=== PATIENT | female | born 1965 | race Asian ===

== ENCOUNTER → 2018-09-19 | Emergency (ER) | payer OTHER ==
[~2018-09-19] MED LIST: BENICAR20 MG PO; CITALOPRAM HBR20 MG PO; METOPROLOL SUC100 MG PO
--- OUTSIDE RECORDS SUMMARY | 2018-09-19 18:46 | XMS REPORT | Summary of Care ---
Author Author [facility] Organization [facility] Address Unknown Phone Unavailable Encounter HQ Encntr_alias(FIN) [id number] Date(s): 10/30/16 - 10/30/16 [facility] [address] [place] [address]- [phone] Discharge Disposition: Home or Self Care Attending Physician: Miranda Suh MD Referring Physician: Miranda Suh MD Vital Signs No data available for this section Problem List No data available for this section Allergies, Adverse Reactions, Alerts No data available for this section Medications No data available for this section Results No data available for this section Immunizations No data available for this section Procedures No data available for this section Social History No data available for this section Assessment and Plan No data available for this section
--- OUTSIDE RECORDS SUMMARY | 2018-09-19 18:46 | XMS REPORT | Summary of Care ---
Author Author [facility] Organization [facility] Address Unknown Phone Unavailable Encounter HQ Encntr_alias(FIN) [id number] Date(s): 06/07/15 - 06/07/15 [facility] [address] [place] [address]- Discharge Disposition: Home Attending Physician: Miranda Suh MD Referring Physician: [...]
--- OUTSIDE RECORDS SUMMARY | 2018-09-19 18:46 | XMS REPORT ---
Author Author [facility] Address Unknown Phone Unavailable Care Team Providers Care Cartographic Designer Name Role Phone SHEREEN CULVER Unavailable Unavailable Problems This patient has no known problems. Allergies, Adverse Reactions, Alerts This patient has no known allergies or adverse reactions. Medications This patient has no known medications. Encounters Start Date/Time End Date/Time Encounter Type Admission Type Attending Clinicians Care Facility Care Department Encounter ID 2017-02-04 08:02:00 2017-02-04 10:02:00 Outpatient 3 SHEREEN CULVER [facility] [id number] Results Test Description Test Time Test Comments Text Results Atomic Results Result Comments PATHOLOGY REPORT 2017-02-05 12:16:00 - [facility].[address], [place] [address] aSAMIR PELLETIER M.D.JASON E. MATHERNE, M.D.JOSEPH M. WEMPE, M.D. Patient: JAKE HUI 1965 51 FRoom:Hosp#: [id number] Ordering Physician: Jose CULVER Rec.: 02/04/2017Date of Proc.: 02/04/2017Lab No.: [id number] Clinical History:- Breast mass.FINAL ANATOMIC DIAGNOSIS:A. SENTINEL LYMPH NODE, LEFT, EXCISION:- ONE LYMPH NODE; NO EVIDENCE OF METASTATIC CARCINOMA (0/1).B. LEFT BREAST MASS A, EXCISION:- BENIGN PHYLLODES TUMOR (LOW-GRADE).- SIZE: 5.5 CM.- LESS THAN FIVE MITOSIS IN TEN HIGH-POWER EARLY.- MILD STROMAL PLEOMORPHISM.- NO OTHER FEATURES OF MALIGNANCY IDENTIFIED.- REMAINING BREAST SHOWS FIBROCYSTIC CHANGES.-C. LEFT BREAST MASS B, EXCISION:- BENIGN PHYLLODES TUMOR AND HYALINIZED FIBROADENOMA (SEE COMMENT).REPORT COMMENTS:- C. Two distinct nodules are seen. One shows features of benignphyllodes tumor and other shows hyalinized fibroadenoma. Thephyllodes tumor may represent the continuation of mass A.Correlation with clinical and radiological findings recommended.FROZEN DIAGNOSIS:Intraoperative consult diagnosis (touch preparation):- Axillary left breast, sentinel lymph node: One lymph node,negative for metastatic carcinoma by touch preparations ([facility]).GROSS APPEARANCE:- A. The specimen labeled "left sentinel lymph node." Received is atan-yellow adipose tissue. A single lymph node is identified 2.2 x1.8 x 0.5 cm. Two touch preps were prepared from the lymph node.The entire specimen is submitted in three cassettes A1node, A3-sentinel fat.- B. The specimen labeled "left breast mass A." Received are twofragments of pale white tissue 5.8 x 4.2 x 2.5 cm and 4.5 x 2.7 x1.8 cm. The larger fragment is a cardona-white nodule 5.5 cm indimension. The nodule is ruptured along the upper surface. Noorientation is identified on the specimen. Sectioning through thismass reveals pale white firm cut surface. The specimen is submittedin eight cassettes: B1 through B6-mass with section from theruptured area in B5 and B6, B6glpvsvjk.- C. The specimen is labeled "left breast mass part B." Received ute cardona-yellow unoriented fragment of a tissue 2.5 x 1.5 x 0.2 cm.Sectioning reveals a white nodule, 1.2 cm. The specimen issubmitted entirely in three cassettes from C1 through C3.PATHOLOGIST: Rj Barajas Adeel Electronically Signed: 02/05/2017 EKG 2017-02-04 13:13:00 QRS Interval: 92msQT Interval: 428msQTC Interval: 424msP [place]: 31degQRS [place]: 16degT Wave [place]: 11degP-R Interval: 182msecRR Interval: 1017msecHeart Rate: 59bpmI 40 [place]: 29degT 40 [place]: 9degST [place]: 30degEKG Severity: - OTHERWISE NORMAL ECG -REPORT:Sinus bradycardia CHEST 1 VIEW PORTABLE 2017-02-04 08:51:[address] [id number] IMAGING REPORTPatient Name: STEPHANIE HUIEEDate of Service: [id number]: 51 Sex: F Order #: [id number] Room: EDOB: 1965 X-Ray Number: [id number] Record Number: [id number] Hospital Number: [id number] Physician: Belkis CULVERing Physician: Rajinder CULVER.8:39 AMHistory: Short of breath.Technique: Single AP chest projection.Findings: Single chest projection demonstrates normal heart size and clearlungs. No infiltrates or abnormalities are depicted. The osseous structuresappear intact.Impression:No acute-appearing cardiopulmonary abnormalities.Electronically Signed By: Power Kim M.D., 02/04/2017 8:49 AMLegally authenticated by ANGELIKA Sandhu 2017-02-04 08:49:39
--- OUTSIDE RECORDS SUMMARY | 2018-09-19 18:46 | XMS REPORT | Summary of Care ---
Author Author [facility] Organization [facility] Address Unknown Phone Unavailable Encounter HQ Encntr_alias(FIN) [id number] Date(s): 11/07/16 - 11/07/16 [facility] [address] [place] [address]- Discharge Disposition: Home or Self Care Attending Physician: Miranda Suh MD Admitting Physician: Miranda Suh MD Referring Physician: Miranda [...]
--- OUTSIDE RECORDS SUMMARY | 2018-09-19 18:46 | XMS REPORT | Summary of Care ---
Author Author [facility] Organization [facility] Address Unknown Phone Unavailable Encounter HQ Encntr_alias(FIN) [id number] Date(s): 06/11/15 - 06/11/15 [facility] [address] [place] [address]- Discharge Disposition: Home Attending Physician: Miranda Suh [...]
--- OUTSIDE RECORDS SUMMARY | 2018-09-19 18:46 | XMS REPORT | Continuity of Care Document ---
Author Author [facility] Interface Address Unknown Phone Unavailable Problems Problem Status Onset Date Classification Date Reported Comments Source DX: MASS Active 10/30/2016 [facility] DX: MASS Active 10/30/2016 [facility] DX: BREAST LUMP LAST MMG WITH MH Active 09/08/2016 [facility] DX: BREAST LUMP LAST MMG WITH MH Active 09/08/2016 [facility] MASS Active 06/07/2015 [facility] BREAST MASS Active 06/07/2015 [facility] BREAST LUMP RT BREAST Active 05/30/2015 [facility] Medications Medication Details Route Status Patient Instructions Ordering Provider Order Date Source Allergies, Adverse Reactions, Alerts Substance Category Reaction Severity Reaction type Status Date Reported Comments Source Immunizations Immunization Date Given Site Status Last Updated Comments Source Results Order Name Results Value Reference Range Date Interpretation Comments Source Breast BX Uni w Clip Primary Side US Breast BX Uni w Clip Primary Side US - BREAST BX UNI W CLIP PRIMARY SIDE US/L ULTRASOUND GUIDED BIOPSY LEFT BREAST WITH MARKING DEVICE INSERTED AND POST DIGITAL MAMMOGRAPHIC AND ULTRASOUND IMAGIN11/07/2016 CLINICAL: Left breast 3 o'clock mass increased in size. PATIENT CONSENT: Oral and written informed consent was obtained. Risks, benefits, and alternatives were discussed with the patient. Risks include but are not limited to pain, infection, bleeding, incomplete procedure, repeat procedure, pneumothorax, damage to surrounding tissues, and allergic reaction. The patient understands the plan and wishes to proceed. A time out was performed immediately prior to the procedure to confirm the patient's identity (name/date of ) and correct procedure site. Correlation is made to exams dated: 10/30/2016 ultrasound, 10/30/2016 mammogram, 06/11/2015 ultrasound biopsy, 06/07/2015 ultrasound, 06/07/2015 mammogram - [facility] and 07/11/2011 mammogram - [facility]. An ultrasound guided biopsy using real-time ultrasound was performed for the concerning 3.6 cm wider than tall circumscribed oval solid mass located in the left breast at 3 o'clock posterior depth 2 cm from the nipple. This was described on the previous mammography and ultrasound reports. The skin was prepped in the usual manner. 5 ccs of 1% lidocaine was administered during the procedure. A skin jacque was made in the breast. The abnormality was approached from the lateral aspect. A 14 gauge biopsy needle was placed adjacent to the abnormality through an introducer device under ultrasound guidance. Once the needle was documented to be in the correct location, three cores were obtained using an Achieve automated firing device. A Gel Arsen UltraCor S shaped clip was inserted into the biopsy cavity. A skin adhesive and a sterile dressing were applied to the access site. Post procedure digital mammographic and ultrasound imaging demonstrates the clip at the targeted area and partial removal of the abnormality. The specimens were sent to the laboratory for pathological analysis. IMPRESSION: ULTRASOUND GUIDED BIOPSY HIGH RISK BENIGN Ultrasound guided biopsy of the 3.6 cm wider than tall solid mass in the left breast at 3 o'clock posterior depth 2 cm from the nipple was successful with no apparent post procedure complications. Pathology indicates high risk benign results - "Fibroadenomatous neoplasm, favor benign phyllodes tumor; This biopsy shows a fibroadenomatous neoplasm. Features favor a benign phyllodes tumor over a fibroadenoma. Definitive classification is deferred to an excision specimen. An excision with clear margins is recommended". Pathology results are concordant with imaging findings. A surgical consult and a surgical excision are recommended. Please note, 2 other nonbiopsied probably benign left breast masses at 2 o'clock have shown over 1 year of stability (described on prior breast ultrasound report). Biopsy results were called to the physician's nurse Elodia at 1030 hours on 11/11/16. Ny wellingtont/:11/11/2016 10:37:25 Subscription Clerk: Tamia Bauman, [facility] This exam was dictated and interpreted by [id number] for [facility]. letter sent: Post BX-High Risk Benign 11/07/2016 - - Read by: Ny Denton MD Dictated Date/time: 11/11/16 10:37 Electronically Signed by: Ny Denton MD 11/11/16 10:37 FINAL REPORT [facility] Digital Mammo DX Uni MA Digital Mammo DX Uni MA - DIGITAL MAMMO DX UNI MA/L UNILATERAL LEFT DIGITAL DIAGNOSTIC MAMMOGRAM WITH CAD POST-PROCEDURE IMAGING FOR MARKER PLACEMENT: 11/07/2016 CLINICAL: Post biopsy clip confirmation mammogram. Current study was evaluated with a Computer Aided Detection (CAD) system. Comparison is made to exams dated: 11/07/2016 ultrasound biopsy, 10/30/2016 ultrasound, 10/30/2016 mammogram, 06/11/2015 ultrasound biopsy, 06/07/2015 ultrasound and 06/07/2015 mammogram - [facility]. The tissue of the left breast is heterogeneously dense, which could obscure detection of small masses. Post procedure digital mammogram demonstrates the biopsy clip in appropriate position. Biopsied lesion is again noted. No other significant interval change. There are benign calcifications in the left breast. IMPRESSION: POST PROCEDURE MAMMOGRAM FOR MARKER PLACEMENT Biopsy clip is in appropriate position. Please see biopsy report for further details. Follow up with ACR/SBI guidelines. Ny myles/lupe:11/07/2016 13:03:46 Subscription Clerk: Corinna Jonas, [facility] This exam was dictated and interpreted by [id number] for [facility]. Mammogram BI-RADS: Post-procedure mammogram for marker placement 11/07/2016 - - Read by: Ny Denton MD Dictated Date/time: 11/07/16 13:03 Electronically Signed by: Ny Denton MD 11/07/16 13:03 FINAL REPORT [facility] Breast Complete Uni US Breast Complete Uni US - BREAST COMPLETE UNI US/L ULTRASOUND OF LEFT BREAST AND LEFT AXILLA: 10/30/2016 CLINICAL: Left breast palpable Mass abnormal mammogram, mammographic nodule/density. Comparison is made to exams dated: 10/30/2016 mammogram, 06/11/2015 ultrasound biopsy, 06/07/2015 ultrasound, 06/07/2015 mammogram - [facility], 07/11/2011 mammogram and 06/21/2010 mammogram - [facility]. Color flow and real-time ultrasound of the left breast and axilla were performed. Shoemaker scale images of the real-time examination were reviewed. All 4 quadrants, the retroareolar region and axilla are evaluated in this exam. There are two stable (measuring 1 cm and 1.2 cm) probably benign oval shaped hypoechoic masses with a circumscribed margin with posterior enhancement left breast at 2 o'clock that correlate with ultrasound. There also are two small benign cysts left breast at 3 and 5 o'clock. There is a 3.6 cm wider than tall oval solid mass with a circumscribed margin in the left breast at 3 o'clock posterior depth 2 cm from the nipple. This oval solid mass is hypoechoic. This abnormality is increased in size and correlates as palpated, with mammography and prior ultrasound findings. Color flow imaging demonstrates that there is increased vascularity. No abnormalities were seen sonographically in the left axilla. IMPRESSION: SUSPICIOUS OF MALIGNANCY - FOLLOW-UP RECOMMENDED The 3.6 cm wider than tall oval solid mass in the left breast resembles a fibroadenoma or phyllodes tumor and is at an intermediate suspicion for malignancy. An ultrasound guided biopsy is recommended. 2 probably benign left breast masses at 2 o'clock resemble fibroadenomas and have shown over 1 year of stability. A phone call was made to the physician's office and the results were reviewed with the patient. SUMMARY: The patient scheduled her procedure prior to leaving the [facility]. Critical findings were called to the physician's nurse Elodia at 1529 hours on the day of the exam. An order for this procedure will need to be provided by the referring physician. Ny Denton M.D. jt/:10/30/2016 15:30:45 Subscription Clerk: Tamia Bauman, [facility] This exam was dictated and interpreted by [id number] for [facility]. letter sent: Biopsy Ultrasound BI-RADS: 4b Suspicious abnormality - intermediate suspicion of malignancy 10/30/2016 - - Read by: Ny Denton MD Dictated Date/time: 10/30/16 15:30 Electronically Signed by: Ny Denton MD 10/30/16 15:30 FINAL REPORT [facility] Digital Mammo DX Fanny MA Digital Mammo DX Fanny MA - DIGITAL MAMMO DX FANNY MA BILATERAL DIGITAL DIAGNOSTIC MAMMOGRAM WITH CAD: 10/30/2016 CLINICAL: Bilateral breast masses known fibroadenoma right breast left breast probably benign masses. Current study was evaluated with a Computer Aided Detection (CAD) system. Comparison is made to exams dated: 06/07/2015 mammogram - [facility], 07/11/2011 mammogram, 06/21/2010 mammogram - [facility], 06/11/2015 ultrasound biopsy, 06/07/2015 ultrasound - [facility] and 04/11/2009 mammogram - [facility]. The tissue of both breasts is heterogeneously dense, which could obscure detection of small masses. There are benign calcifications in both breasts. There also is a benign mass in the right breast. Additionally there is a biopsy clip in the right breast. There is a new 3 cm round mass in the left breast at 3 o'clock posterior depth. This correlates as palpated and with area of clinical concern but was not seen on the prior mammogram. No other significant masses, calcifications, or other findings are seen in either breast. IMPRESSION: INCOMPLETE: NEEDS ADDITIONAL IMAGING EVALUATION The new 3 cm round mass in the left breast is indeterminate. An ultrasound is recommended. The results were reviewed with the patient. SUMMARY: Ultrasound will be performed at this time; please see dedicated separate report. Ultrasound will also reevaluate prior probably benign findings. Ny myles/lupe:10/30/2016 15:26:21 Subscription Clerk: Melissa Garcia, [facility] This exam was dictated and interpreted by [id number] for [facility]. Mammogram BI-RADS: 0 Indeterminate 10/30/2016 - - Read by: Ny Denton MD Dictated Date/time: 10/30/16 15:26 Electronically Signed by: Ny Denton MD 10/30/16 15:26 FINAL REPORT [facility] Breast biopsy uni US Guided w clip MA Breast biopsy uni US Guided w clip MA - BREAST BIOPSY UNI US GUIDED W CLIP MA/R ULTRASOUND GUIDED BIOPSY RIGHT BREAST WITH MARKING DEVICE INSERTED: 06/11/2015 CLINICAL: Mass. Correlation is made to exam dated: 06/07/2015 ultrasound - [facility]. An ultrasound guided biopsy using real-time ultrasound was performed for the 2.1 cm oval mass located in the right breast at 11 o'clock posterior depth 1 cm from the nipple. This was described on the previous ultrasound report. The skin was prepped in the usual manner. Local anesthetic was administered to the access site. A skin jacque was made in the breast. The abnormality was approached from the lateral aspect. A 14 gauge biopsy needle was placed adjacent to the abnormality through an introducer device under ultrasound guidance. Once the needle was documented to be in the correct location, three specimens were obtained using a BARD biopsy device. A clip was inserted into the biopsy cavity. A sterile dressing was applied to the access site. Post procedure imaging demonstrates the clip at the targeted area. The specimens were sent to the laboratory for pathological analysis. IMPRESSION: ULTRASOUND GUIDED BIOPSY BENIGN Ultrasound guided biopsy of the 2.1 cm mass in the right breast at 11 o'clock posterior depth 1 cm from the nipple was successful with no apparent post procedure complications. Pathology indicates benign fibroadenoma. Pathology results are concordant with imaging findings. A follow-up mammogram and an ultrasound in 6 months is recommended to demonstrate stability. Marychuy Barragan M.D. ap/:06/14/2015 14:50:13 Subscription Clerk: Tamia Bauman, [facility] This exam was dictated and interpreted by [id number] for [facility]. letter sent: Post Bx Results 06/11/2015 - - Read by: Marychuy Barragan MD Dictated Date/time: 06/14/15 14:50 Electronically Signed by: Marychuy Barragan MD 06/14/15 14:50 FINAL REPORT [facility] Breast [facility] Fanny US Breast Complete Fanny US - BREAST COMPLETE FANNY US ULTRASOUND OF BOTH BREASTS AND BOTH AXILLA: 06/07/2015 CLINICAL: Cysts palpable right breast mass. Comparison is made to exams dated: 06/07/2015 mammogram - [facility], 07/11/2011 mammogram, 06/21/2010 mammogram, 04/11/2009 mammogram and 11/23/2007 mammogram - [facility]. Color flow and real-time ultrasound of both breasts and both axilla were performed. Shoemaker scale images of the real-time examination were reviewed. For both breasts, all 4 quadrants, the retroareolar region and axilla are evaluated in this exam. There is a small benign simple cyst right breast at 8 o'clock. There also are three probably benign oval shaped hypoechoic masses with a circumscribed margin with posterior enhancement left breast at 2 and 3 o'clock that correlate with mammography (the largest is at 2 o'clock 3 cfn measuring 1.3 cm). There is a 2.3 cm wider than tall oval mass with a circumscribed margin in the right breast at 11 o'clock posterior depth 1 cm from the nipple. This oval mass is hypoechoic with posterior acoustic enhancement. This abnormality is increased in size and correlates as palpated and with current mammography findings. Color flow imaging demonstrates that there is no vascularity present. No abnormalities were seen sonographically in either axilla. IMPRESSION: SUSPICIOUS OF MALIGNANCY - FOLLOW-UP RECOMMENDED The 2.3 cm wider than tall oval mass in the right breast resembles a fibroadenoma and is at an intermediate suspicion for malignancy. An ultrasound guided biopsy is recommended. Left breast masses are probably benign, likely fibroadenomas, and follow up is recommended. A phone call was made to the physician's office and the results were reviewed with the patient. SUMMARY: The patient scheduled her procedure prior to leaving the [facility]. Critical findings were called to the physician's nurse Elodia at 1550 hours on the day of the exam. Ny Denton M.D. jt/:06/07/2015 16:03:09 Subscription Clerk: Tamia Bauman, [facility] This exam was dictated and interpreted by [id number] for [facility]. letter sent: Biopsy Ultrasound BI-RADS: 4b Suspicious abnormality - intermediate suspicion of malignancy 06/07/2015 - - Read by: Ny Denton MD Dictated Date/time: 06/07/15 16:03 Electronically Signed by: Ny Denton MD 06/07/15 16:03 FINAL REPORT [facility] Digital Mammo DX Fanny MA Digital Mammo DX Fanny MA - DIGITAL MAMMO DX FANNY MA BILATERAL DIGITAL DIAGNOSTIC MAMMOGRAM WITH CAD: 06/07/2015 CLINICAL: Breast Nodule. Current study was evaluated with a Computer Aided Detection (CAD) system. Comparison is made to exams dated: 07/11/2011 mammogram, 06/21/2010 mammogram, 04/11/2009 mammogram and 11/23/2007 mammogram - [facility]. The tissue of both breasts is heterogeneously dense, which could obscure detection of small masses. Scattered densities are noted in both breasts. There are benign calcifications in both breasts. There is an oval high density mass with a circumscribed margin in the right breast at 11 o'clock middle depth. This correlates as palpated and with skin marker. No other significant masses, calcifications, or other findings are seen in either breast. IMPRESSION: INCOMPLETE: NEEDS ADDITIONAL IMAGING EVALUATION Scattered densities are noted in both breasts. Further evaluation with bilateral ultrasound is recommended. The oval high density mass in the right breast is indeterminate. An ultrasound is recommended. SUMMARY: Ultrasound will be performed at this time; please see dedicated separate report. Ny myles/lupe:06/07/2015 15:53:26 Subscription Clerk: Leandra Oneill, [facility] This exam was dictated and interpreted by [id number] for [facility]. Mammogram BI-RADS: 0 Indeterminate 06/07/2015 - - Read by: Ny Denton MD Dictated Date/time: 06/07/15 15:53 Electronically Signed by: Ny Denton MD 06/07/15 15:53 FINAL REPORT [facility] Vital Signs Vital Sign Value Date Comments Source Encounters Location Location Details Encounter Type Encounter Number Reason For Visit Attending Provider ADM Date DC Date Status Source [facility] Outpatient [id number] [facility] 06/07/2015 06/08/2015 [facility] Outpatient [id number] [facility] 06/11/2015 06/12/2015 [facility] Outpatient [id number] [facility] 10/30/2016 10/31/2016 [facility] Outpatient [id number] [facility] 11/07/2016 11/08/2016 [facility] Procedures Procedure Code Date Perfomer Comments Source
== END | disposition left against medical advice (07) ==
LOC: ER 18:43
DX: R09.89 Other specified symptoms and signs involving the circulatory and respiratory systems (principal)

== ENCOUNTER 2020-04-07 16:19 | Emergency (ER) | payer OTHER ==
[~2020-04-07] VITALS: Ht 160 cm; Wt 58.1 kg
--- NOTE | 2020-04-07 16:44 | Emergency Department Note ---
History of Present Illnes History of Present Illness Chief Complaint: General Medicine Complaints History of Present Illness This is a 54 year old female arrives to the ED with complaints of itchiness after taking prednisone. Patient denies any throat swelling or shortness of breath. . Chief Complaint Comment Patient in from home with complaints of a severe headache. Patient reports that she was recently prescribed prednisone for a gout flare up. Patient states that she took the pill and 40 minutes later she felt itchy all over along with a severe headache and weakness. EMS administered 25mg of benadryl IV en route to the ER. Patient's skin does have a red color but patient also reports she recently got sun burn. Per EMS the patient had one episode of vomiting on the ambulance. Historian: Patient, [facility]/EMS Arrival Mode: [facility] Onset (how long ago): hour(s) Radiation: Reports non-radiation Severity: mild Duration (how long): hour(s) Timing of current episode: intermittent Progression: resolved Past Medical/Family History Physician Review I have reviewed the patient's past medical and family history. Any updates have been documented here. Past Medical History Recent Fever: No Clinical Suspicion of Infectio: No New/Unexplained Change in Ment: No Past Medical History: Hypertension, Cancer Past Surgical History: Lumpectomy Social History Smoking Cessation: Never Smoker Counseling Performed: No Alcohol Use: Occasional Any Illegal Drug Use: No TB Exposure/Symptoms: No Physically hurt or threatened: No Other Last Tetanus: UTD Any Pre-Existing Lines (PICC,: No Is patient up to date on immun: Yes Last Flu: last year Last Pneumovax: none Review of Systems Review of Systems Constitutional: Reports no symptoms EENTM: Reports no symptoms Cardiovascular: Reports no symptoms Respiratory: Reports no symptoms Gastrointestinal: Reports no symptoms Genitourinary: Reports no symptoms Musculoskeletal: Reports no symptoms Integumentary: Reports as per HPI Neurological: Reports no symptoms Psychological: Reports no symptoms Endocrine: Reports no symptoms Hematological/Lymphatic: Reports no symptoms Physical Exam Related Data Allergies: Coded Allergies: amoxicillin (Verified Allergy, Intermediate, SEVERE DIARRHEA/NAUSEA, 09/20/13) prednisone (Verified Allergy, Intermediate, itching, weakness, weakness, 04/07/20) Triage Vital Signs Vital Signs Date Time Temp Pulse Resp B/P (MAP) Pulse Ox O2 Delivery O2 Flow Rate FiO2 04/07/20 16:25 97.9 78 17 144/111 100 Vital signs reviewed: Yes Physical Exam CONSTITUTIONAL Constitutional: Present well-developed, Present well-nourished HENT HENT: Present normocephalic, Present atraumatic, Present oropharynx clear/moist, Present nose normal HENT L/R: Present left ext ear normal, Present right ext ear normal EYES Eyes: Reports PERRL, Reports conjunctivae normal NECK Neck: Present ROM normal PULMONARY Pulmonary: Present effort normal, Present breath sounds normal CARDIOVASCULAR Cardiovascular: Present regular rhythm, Present heart sounds normal, Present capillary refill normal, Present normal rate GASTROINTESTINAL Abdominal: Present soft, Present nontender, Present bowel sounds normal GENITOURINARY Genitourinary: Present exam deferred SKIN Skin: Present warm, Present dry MUSCULOSKELETAL Musculoskeletal: Present ROM normal NEUROLOGICAL Neurological: Present alert, Present oriented x 3, Present no gross motor or sensory deficits PSYCHOLOGICAL Psychological: Present mood/affect normal, Present judgement normal Assessment & Plan Medical Decision Making MDM 54-year-old female at the ED with sudden onset of pruritus and weakness after taking prednisone. Patient states symptoms resolved since arrival to the ED after getting Benadryl. Patient reevaluated bedside, airway intact, no concerns of anaphylaxis or life-threatening allergic reaction. Patient does not require epinephrine, patient discharged home on ranitidine and encouraged Benadryl every 6 hours for the next 2 days. Assessment & Plan Final Impression: (1) Allergic reaction Depart Disposition: HOME, SELF-CARE Last Vital Signs Date Time Temp Pulse Resp B/P (MAP) Pulse Ox O2 Delivery O2 Flow Rate FiO2 04/07/20 16:25 97.9 78 17 144/111 100 Home Meds Reported Medications Citalopram Hydrobromide (CITALOPRAM HBR) 20 Mg Tablet, 20 MG PO DAILY 09/20/13 Metoprolol Succinate (METOPROLOL SUCCINATE) 100 Mg Tab.er.24h, 100 MG PO BID 09/20/13 Olmesartan Medoxomil (BENICAR) 20 Mg Tablet, 20 MG PO BID 09/20/13 LENORE AGUILERA, Apr 07, 2020 16:27
[2020-04-07 18:42] LABS: BASOPHILS # (AUTO) 0.1 (0.0-0.1); BASOPHILS % 0.4 % (0.0-1.0); EOSINOPHILS # (AUTO) 0.1 (0.0-0.4); EOSINOPHILS % 0.7 % (0.0-6.0); HEMATOCRIT 41.9 % (34.2-44.1); HEMOGLOBIN 13.7 g/dL (12.0-16.0); LYMPHOCYTES % 18.8 % (18.0-39.1); MEAN CORPUSCULAR HEMOGLOBIN 27.6 pg (28-32); MEAN CORPUSCULAR HGB CONC 32.7 g/dL (31-35); MEAN CORPUSCULAR VOLUME 84.5 fL (81-99); MONOCYTES # (AUTO) 0.4 (0.2-0.8); MONOCYTES % 2.4 % (4.4-11.3); NEUTROPHILS # (AUTO) 12.5 (2.1-6.9); NEUTROPHILS % 77.1 % (38.7-80.0); PLATELET COUNT 371 x10e3/uL (140-360); RED BLOOD COUNT 4.96 x10e6/uL (3.6-5.1)
[2020-04-07 18:56] LABS: ALBUMIN 3.9 g/dL (3.5-5.0); ALBUMIN/GLOBULIN RATIO 1.1 (0.8-2.0); ANION GAP 16.2 mmol/L (8-16); CALCIUM 9.3 mg/dL (8.4-10.2); CREATININE, SERUM 1.56 mg/dL (0.57-1.11); POTASSIUM 3.2 mmol/L (3.5-5.1)
== END 2020-04-07 19:13 | disposition home or self-care (01) ==
LOC: ER 16:19
DX: L29.9 Pruritus, unspecified (principal); T78.40XA Allergy, unspecified, initial encounter; I10 Essential (primary) hypertension; Z85.89 Personal history of malignant neoplasm of other organs and systems
CPT/HCPCS: 36415; 80053; 85025; 99284